=== PATIENT | female | born 1950 | race Caucasian/White ===

== ENCOUNTER 2019-01-26 07:08 | Day surgery (SDC) | payer MEDICARE, OTHER ==
[~2019-01-26] VITALS: Ht 165.1 cm; Wt 89.9 kg
[~2019-01-26 07:08] MED LIST: ASPI81CH PO; CLOP75 PO; Coumadin4 MG PO; ENOX100I SC; PRAV10 PO; PRAV20 PO; VARE1 PO
[2019-01-26] MEDS ORDERED: Vitamin D2000 UNIT PO (07:45)
[2019-01-26] MEDS ORDERED: XARELTO15 MG PO (07:45)
--- NOTE | 2019-01-26 08:54 | NUR ---
01/26/19 0853 Khadra Bustillos PT. DENIES PAIN. VERBALIZES CAN FEEL LEFT THUMB BUT FEELS NUMB. GOOD CAP REFILL. HAND ELEVATED UP ON PILLOW. 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
== END 2019-01-26 09:26 | disposition home or self-care (01) ==
LOC: ORSCSDS 07:08
PROVIDERS: Orthopaedic Surgery
PROC: 0LN80ZZ Release Left Hand Tendon, Open Approach (ICD-10-PCS; principal; 2019-01-26 08:30)
DX: M65.312 Trigger thumb, left thumb (principal); E78.00 Pure hypercholesterolemia, unspecified; Z87.891 Personal history of nicotine dependence; E66.9 Obesity, unspecified; Z68.33 Body mass index [BMI] 33.0-33.9, adult; Z79.899 Other long term (current) drug therapy; Z79.82 Long term (current) use of aspirin; Z79.01 Long term (current) use of anticoagulants
CPT/HCPCS: J0171; J0690; J2250; J2704; J3010; J7120

== ENCOUNTER 2020-01-16 16:56 | Inpatient (IN) | payer MEDICARE, OTHER ==
[~2020-01-16] VITALS: Ht 165.1 cm; Wt 86.2 kg
[~2020-01-16 16:56] MED LIST changes: -PRAV20 PO; +Pravastatin Sod80 MG PO; +XARELTO15 MG PO
[2020-01-16 18:25] LABS: BASOPHILS ABSOLUTE AUTO 0.01 K/mm3 (0.00-0.23); BASOPHILS PERCENT AUTO 0 % (0-2); EOSINOPHILS PERCENT AUTO 0 % (0-6); Hematocrit 42.5 % (33.0-51.0); Hemoglobin 13.7 g/dL (11.5-16.0); IMMATURE GRAN ABSOLUTE AUTO 0.01 K/mm3 (0.00-0.10); IMMATURE GRAN PERCENT AUTO 0 % (0-1); LYMPHOCYTES ABSOLUTE AUTO 0.66 K/mm3 (0.84-5.20); LYMPHOCYTES PERCENT AUTO 14 % (21-46); MONOCYTES ABSOLUTE AUTO 0.24 K/mm3 (0.16-1.47); MONOCYTES PERCENT AUTO 5 % (4-13); Mean Corpuscular HGB Conc 32.2 g/dL (31.5-36.5); Mean Corpuscular Volume 90 fL (80-100); Mean Platelet Volume 10.8 fL (9.1-12.4); NEUTROPHILS ABSOLUTE AUTO 3.91 K/mm3 (1.96-9.15); NEUTROPHILS PERCENT AUTO 81 % (41-73); Platelet Count 217 K/mm3 (150-400); RDW Coefficient Variation 12.8 % (11.7-14.2); RDW Standard Deviation 42.3 fL (35.1-46.3); Red Blood Cell Count 4.73 M/mm3 (3.80-5.20); White Blood Cell Count 4.83 K/mm3 (4.00-11.30)
[2020-01-16 18:35] LABS: Anion Gap 9 mmol/L (6-16); Blood Urea Nitrogen 13 mg/dL (8-24); CO2, Blood 20 mmol/L (21-32); Calcium, Blood 8.7 mg/dL (8.5-10.1); Chloride, Blood 109 mmol/L (98-108); Creatinine, Blood 0.72 mg/dL (0.40-1.00); Glomerular Filtration Rate >60 (60-); Glucose, Blood 117 mg/dL (70-99); Potassium, Blood 4.3 mmol/L (3.5-5.5); Sodium, Blood 138 mmol/L (136-145)
[2020-01-16] MEDS ORDERED: MONT10T PO (18:56)
[2020-01-16] MEDS ORDERED: Norco 5-325 Ta1 EACH PO (18:56)
[2020-01-16 19:04] LABS: PCO2 Arterial 27.6 mmHg (35-45); PO2 Arterial 61.1 mmHg (80-100); pH Blood Arterial 7.46 (7.35-7.45)
[2020-01-16] MEDS ORDERED: Vitamin D2000 UNIT PO (19:10)
[2020-01-16 19:38] LABS: Albumin/Globulin Ratio 0.8 (0.8-1.8); Bilirubin, Direct 0.2 mg/dL (0.0-0.3); Bilirubin, Indirect 0.6 mg/dL (0.1-0.7); Bilirubin, Total 0.8 mg/dL (0.1-1.0)
[2020-01-16 19:39] LABS: International Normalized Ratio 3.38; Prothrombin Time Results 33.8 Sec (9.7-11.5)
[2020-01-16 20:10] LABS: Influenza A Negative (NEGATIVE); Influenza B Negative (NEGATIVE)
[2020-01-17 00:53] LABS: Adenovirus Not Detected (NOT DETECT); Bordetella pertussis Not Detected (NOT DETECT); Chlamydophila pneumoniae Not Detected (NOT DETECT); Coronavirus 229E Not Detected (NOT DETECT); Coronavirus HKU1 Not Detected (NOT DETECT); Coronavirus NL63 Not Detected (NOT DETECT); Coronavirus OC43 Not Detected (NOT DETECT); Human Metapneumovirus Not Detected (NOT DETECT); Human Rhinovirus/Enterovirus Not Detected (NOT DETECT); Influenza A/2009-H1 Not Detected (NOT DETECT); Influenza A/H1 Not Detected (NOT DETECT); Influenza A/H3 Not Detected (NOT DETECT); Influenza B Not Detected (NOT DETECT); Mycoplasma pneumoniae Not Detected (NOT DETECT); Parainfluenza Virus 1 Not Detected (NOT DETECT); Parainfluenza Virus 2 Not Detected (NOT DETECT); Parainfluenza Virus 3 Not Detected (NOT DETECT); Parainfluenza Virus 4 Not Detected (NOT DETECT); Respiratory Syncytial Virus Not Detected (NOT DETECT); SARS-Cov-2 (COVID-19), BioFire Not Detected (NOT DETECT)
[2020-01-17 05:25] LABS: BASOPHILS ABSOLUTE AUTO 0.01 K/mm3 (0.00-0.23); BASOPHILS PERCENT AUTO 0 % (0-2); EOSINOPHILS PERCENT AUTO 0 % (0-6); Hematocrit 38.2 % (33.0-51.0); Hemoglobin 12.2 g/dL (11.5-16.0); IMMATURE GRAN ABSOLUTE AUTO 0.01 K/mm3 (0.00-0.10); IMMATURE GRAN PERCENT AUTO 0 % (0-1); LYMPHOCYTES ABSOLUTE AUTO 1.21 K/mm3 (0.84-5.20); LYMPHOCYTES PERCENT AUTO 29 % (21-46); MONOCYTES ABSOLUTE AUTO 0.23 K/mm3 (0.16-1.47); MONOCYTES PERCENT AUTO 5 % (4-13); Mean Corpuscular HGB 28.4 pg (26.0-34.0); Mean Corpuscular HGB Conc 31.9 g/dL (31.5-36.5); Mean Corpuscular Volume 89 fL (80-100); Mean Platelet Volume 9.9 fL (9.1-12.4); NEUTROPHILS ABSOLUTE AUTO 2.78 K/mm3 (1.96-9.15); NEUTROPHILS PERCENT AUTO 66 % (41-73); Platelet Count 161 K/mm3 (150-400); RDW Coefficient Variation 12.9 % (11.7-14.2); RDW Standard Deviation 42.2 fL (35.1-46.3); Red Blood Cell Count 4.29 M/mm3 (3.80-5.20); White Blood Cell Count 4.24 K/mm3 (4.00-11.30)
[2020-01-17 05:38] LABS: International Normalized Ratio 3.52; Prothrombin Time Results 35.1 Sec (9.7-11.5)
[2020-01-17 05:43] LABS: Anion Gap 7 mmol/L (6-16); Blood Urea Nitrogen 14 mg/dL (8-24); Bun/Creatinine Ratio 18.7 (12.0-20.0); CO2, Blood 21 mmol/L (21-32); Calcium, Blood 7.7 mg/dL (8.5-10.1); Chloride, Blood 111 mmol/L (98-108); Creatinine, Blood 0.75 mg/dL (0.40-1.00); Glomerular Filtration Rate >60 (60-); Glucose, Blood 107 mg/dL (70-99); Potassium, Blood 3.7 mmol/L (3.5-5.5); Sodium, Blood 139 mmol/L (136-145)
--- NOTE | 2020-01-17 06:28 | NUR ---
ADMIT NOTE/SHIFT SUMMARY PATIENT ADMITED EARLIER THIS SHIFT FROM THE ER. PATIENT ABLE TO TRANSFER SELF FROM THE GURNEY TO THE BED VIA SBA. PATIENT SETTLED IN AND ORIENTED TO THE ROOM, UNIT, AND CALL LIGHT. PATIENT PLEASENT AND COOPERATIVE THROUGHOUT THE NIGHT. PATIENT MEDICATED FOR PAIN PER EMAR. PATIENT REPORTS SHE WAS ABLE TO DOZE ON AND OFF THROUGHOUT THE NIGHT. PATIENT CURRENTLY ON 6L VIA HIGH FLOW N/C. PATIENT CURRENTLY RESTING IN BED, WATCHING TV. VITAL SIGNS CHARTED. WILL CONTINUE TO MONITOR PATIENT AND REPORT TO ONCOMING RN.
--- NOTE | 2020-01-17 18:20 | NUR ---
SHIFT SUMMARY PT IS ALERT AND ORIENTEDx4 VERY PLEASANT TO WORK WITH. INITIALLY PT WAS ON 6L OF O2 VIA NC THIS MORNING, NON-PRODUCTIVE DRY COUGH. WAS ABLE TO DECREASE O2 TO 4L THIS AFTERNOON AND PT HAS MAINTAINED SPO2 >90%. DR SUMMERS WAS CONSULTED TODAY AND ORDERS RECEIVED TO MAINTAIN SPO2 >88%. PT IS TACHYPNIC AND DOES HAVE EXERTIONDAL DYSPNEA WITH A DROP IN SATS TO MID 80'S WITH ACTIVITY. PT DOES RECOVER QUICKLY. TELEMETRY HAS SHOWN PT TO BE IN SINUS RHYTHM, OTHER VITALS HAVE BEEN STABLE. ENHANCED DROPLOT ISOLATION REMAINS IN PLACE, CALL LIGHT WITHIN REACH OF PT.
[2020-01-18 04:21] LABS: International Normalized Ratio 3.82; Prothrombin Time Results 37.9 Sec (9.7-11.5)
--- NOTE | 2020-01-18 06:21 | NUR ---
SHIFT SUMMARY PATIENT PLEASENT AND COOPERATIVE THROUGHOUT THE NIGHT. PATIENT REQURED 10-11L OF O2 TO MAINTAIN O2 READING'S GREATER THAN 88% THROUGHOUT THE NIGHT. PATIENT SBA TO THE BATHROOM. PATIENT REPORTS HER BREATHING CONTINUES TO FEEL BETTER THAN WHEN SHE GOT HERE. PATIENT APPEARS TO HAVE SELPT WELL THROUGHOUT THE SECOND HALF OF THE NIGHT. WHEN AWAKE PATIENT ENCOURAGED TO ATTEMPT TO PRONE SELF PERIODICALLY, HOWEVER, PATIENT REPORTS IT IS "UNCOMFORTABLE AND IT MAKES IT HARDER FOR ME TO BREATH." VITAL SIGNS CHARTED. WILL CONTINUE TO MONITOR PATIENT AND REPORT TO ONCOMING RN.
--- NOTE | 2020-01-18 17:53 | NUR ---
SHIFT SUMMARY; A/A/OX4 THROUGHOUT SHIFT. REMAINS ON 11L HIGH FLOW O2. SBA ASSIST IN ROOM. SHOWER AND LINEN CHANGE TODAY. NO ACUTE CHANGES OF MEDICAL CARE TODAY. WILL CONTINUE TO MONITOR UNTIL CHANGE OF SHIFT.
[2020-01-19 04:37] LABS: Hematocrit 38.6 % (33.0-51.0); Hemoglobin 12.3 g/dL (11.5-16.0); Mean Corpuscular HGB 28.3 pg (26.0-34.0); Mean Corpuscular HGB Conc 31.9 g/dL (31.5-36.5); Mean Corpuscular Volume 89 fL (80-100); Platelet Count 236 K/mm3 (150-400); RDW Coefficient Variation 12.8 % (11.7-14.2); Red Blood Cell Count 4.34 M/mm3 (3.80-5.20); White Blood Cell Count 8.63 K/mm3 (4.00-11.30)
[2020-01-19 04:53] LABS: International Normalized Ratio 3.47; Prothrombin Time Results 34.6 Sec (9.7-11.5)
[2020-01-19 04:56] LABS: Albumin, Blood 2.6 g/dL (3.4-5.0); Anion Gap 5 mmol/L (6-16); Blood Urea Nitrogen 30 mg/dL (8-24); Bun/Creatinine Ratio 39.6 (12.0-20.0); CO2, Blood 24 mmol/L (21-32); Calcium, Blood 8.4 mg/dL (8.5-10.1); Chloride, Blood 114 mmol/L (98-108); Creatinine, Blood 0.76 mg/dL (0.40-1.00); Glomerular Filtration Rate >60 (60-); Glucose, Blood 178 mg/dL (70-99); Phosphorus, Blood 3.5 mg/dL (2.5-4.9); Potassium, Blood 4.3 mmol/L (3.5-5.5); Sodium, Blood 143 mmol/L (136-145)
--- NOTE | 2020-01-19 05:29 | NUR ---
END OF SHIFT SUMMARY NO ACUTE CHANGES THIS SHIFT BESIDES BEING TITRATED FROM 11L HIFLOW TO 13L. SPO2 RANGING FROM 88% TO 94%. PT HAS BEEN MUCH LESS "LABILE AND IRRITABLE" WITH STAFF THIS SHIFT AND HAS BEEN NCOOPERATIVE AND PLEASANT WITH THIS RN. STILL AWAITING SEND OUT COVID RESULTS. STAFF WEARING APPROPRIATE PPE WHILE IN ROOM. LUNG SOUNDS TO AUCULTATION SOUND DIM W/OUT CRACKLES OR WHEEZES. WILL CONTINUE TO MONITOR UNTIL SHIFT CHANGE.
--- NOTE | 2020-01-19 17:56 | NUR ---
SHIFT SUMMARY; A/A/OX4 THROUGHOUT SHIFT TODAY. 11L HIGH FLOW 02. SBA ASSIST IN ROOM TO RESTROOM NEEDED. L/S DIMINISHED THROUGHOUT, DYSPNEA WITH EXERTION. SON AT BEDSIDE TODAY. CALM AND COOPERATIVE DURING SHIFT. NO ACUTE CHANGES, WILL CONTINUE TO MONITOR AND TREAT UNTIL CHANGE OF SHIFT.
--- NOTE | 2020-01-20 02:49 | NUR ---
TRANSFER OF CARE 0245 01/20/2020 CARE TRANSFERRED TO MARILYN RN/SAM RN. UP UNTIL THIS TIME, NO ACUTE CHANGES THIS SHIFT. VSS. PT ON 11 HIFLOW AT BEGINNING OF SHIFT, MOST RECENTLY, PT TITRATED TO 13L TO MEET SPO2 >88%. THIS HAPPENED LAST NOC SHIFT WELL WHEN PATIENT LAYING FLAT AND SLEEPING. PT REMIANS IN SR, BP STABLE. LUNGS PRESENT DIM WITH OCCASIONAL CRACKLES. PT VERY PLEASANT AND COOPERATIVE. HAS OCCASIONAL ANXIETY RELATED TO RESPIRATORY STATUS. REMDESIVIR INFUSED VIA IV. OTHERWISE, PT RESTING QUIETLY IN ROOM.
[2020-01-20 03:55] LABS: International Normalized Ratio 3.82; Prothrombin Time Results 37.9 Sec (9.7-11.5)
--- NOTE | 2020-01-20 05:30 | NUR ---
END OF SHIFT SUMMARY NO ACUTE CHANGES THIS SHUFT. P[T AXO. STARTED SHIFT ON 11L HIFLO, NOW AT 13L HI FLOW WHILE SLEEPING PRONE. LUNG SOUNDS CLEAR TO FINE CRACKLES IN BASES AT TIMES. PT STATES OCCASIONALLY PRODUCING SMALL THIN SECRETIONS WHEN COUGHING, WHITE/YELLOW COLORED. PT ANXIOUS AT TIMES DUE TO RESPIRATORY STATUS BUT PRESENTS CALM AND COOPERATIVE. REMDESEVIR INFUSED ORDERED. SPO2 RANGING FROM 88% TO 92%. PT REMAINS IN [id number] PRESSURE ROOM, INDICATOR PRESENTS THAT THE PRESSURE SETTINGS IMN THE ROOM ARE WORKING ADEQUATELY. OTHERWISE, PT HAS BEEN RESTING IN ROOM QUIETELY. WILL CONTINUE TO MONITOR UNTIL SHIFT CHANGE.
--- NOTE | 2020-01-20 07:10 | NUR ---
ASSUMED CARE AT 0700, REPORT FROM EMILE JESUS. A/A/OX4, 13L HIGH FLOW O2. INDEPENDANT IN ROOM. PLAN OF CARE REVIEWED FOR DAY, WILL CONTINUE TO MONITOR.
--- NOTE | 2020-01-20 17:37 | NUR ---
SHIFT SUMMARY; A/A/OX4 THROUGHOUT SHIFT TODAY. SBA IN ROOM TO RESTROOM NEEDED. 14L HIGH FLOW O2 THROUGHOUT DAY. DYSPNEA WITH EXCERTION. MAINTAINED SATS 88-93% VSS, PLEASANT AND COOPERATIVE WITH CARE. NO ACUTE MEDICAL CHANGES DURING SHIFT.
[2020-01-21 04:11] LABS: International Normalized Ratio 3.31; Prothrombin Time Results 33.1 Sec (9.7-11.5)
--- NOTE | 2020-01-21 05:08 | NUR ---
SUMMARY: A/OX4, ANXIOUS AT TIMES, SBA TO TOILET OR BSC AND PT SPECIFIES NEEDS. SHE REMAINS ON 14L HIGH FLOW HUMIDIFIED O2 W/SPO2 88-93% PER MD'S TARGET RANGE. SHE DOES STILL DESAT W/EXERTION OR ATTEMPTS TO TITRATE O2. PT BECOMES SOB W/ACTIVITY, REPOSITIONING IN BED AND IT'S EXACERBATED BY ANXIETY. BREATHING COACHING PERFORMED FOR GOOD EFFECT AT CALMING PT AND RESPIRATIONS. LS CLEAR T/O AND DIMINISHED W/OCCASIONAL MOIST HACKING COUGH, DARK RED/BLACK TINGED SPUTUM OBSERVED. LAST DOSE OF REMDESIVIR RECIEVED FOR COVID (+), PO DECADRON STILL BEING RECIEVED. PT IS NSR AT 60'S WHEN BUT DOES BECOME BRADYCARDIC AT TIMES WHEN ASLEEP W/HR 50'S. NO ACUTE CHANGES, VSS/AFEBRILE. WCTM AND REPORT TO DAY RN.
--- NOTE | 2020-01-21 07:25 | NUR ---
ASSUMED CARE: PT RESTING QUIETLY IN BED. NC IN PLACE, SATTING 91% ON 14L AT THIS TIME. NSR ON TELE. NO ACUTE NEEDS OR CONCERNS.
--- NOTE | 2020-01-21 18:07 | NUR ---
SHIFT SUMMARY: PT TITRATED TO 10L ON HIFLOW NC. NUMBERS IMPROVED AFTER PRONING AND SITTING UP IN CHAIR THIS AFTERNOON. FAMILY CALLED AND HAS BEEN GIVEN UPDATE WITH EDUCATION ON STATUS AND WHY OXYGEN NEED IS SO HIGH. WILL CONINUE TO MONITOR AND TITRATE 02 ABLE.
[2020-01-22 04:16] LABS: International Normalized Ratio 3.02; Prothrombin Time Results 30.4 Sec (9.7-11.5)
--- NOTE | 2020-01-22 06:30 | NUR ---
SHIFT SUMMARY PT SLEPT T/O SHIFT. PT REPORTS NO CHEST PRESSURE OR PAIN. PT ALERT AND ORIENTED. PT ABLE TO AMBULATE TO BATHROOM WITH ONE ASSIST. PT MAINTAINED OVER 90% ON 10 L OF OXYGEN VIA HIGH FLOW NASAL CANULA. HR STABLE, BP STABLE. WILL CONTINUE TO MONITOR UNTIL REPORT GIVEN TO DAYSHIFT RN.
--- NOTE | 2020-01-22 07:00 | NUR ---
ASSUMED CARE: PT NSR ON TELE, NIGHT RN REPORTS 10L NC. WALL STEAMER ASSISTING WITH SHOWER AT THIS TIME. NO FURTHER NEEDS OR CONCERNS AT PRESENT
--- NOTE | 2020-01-22 18:40 | NUR ---
SHIFT SUMMARY: PT HAS PRONED HERSELF MULTIPLE TIMES THIS SHIFT AND WAS ABLE TO BE TITRATED DOWN TO 7L VIA HIFLOW NC. SHE HAD A VISITOR AT BEDSIDE TODAY. STATES SHE IS FEELING BETTER AND STRONGER. UP IN CHAIR THIS SHIFT WELL. SEEMS MOTIVATED TO MOVE AND CHANGE POSITIONS IN ROOM. NO FURTHER NEEDS OR CONCERNS AT THIS TIME.
--- NOTE | 2020-01-23 04:30 | NUR ---
SUMMARY PT PLEASANT AND COOPERATIVE WITH CARE. AMBULATES TO BATHROOM WITH SUPERVISION. SLEPT MOST THE NIGHT WITH NO COMPLAINTS OF PAIN. MAINTAINING O2 SATS IN THE LOWER 90s ON 6L OF O2. VSS, CALL LIGHT IN REACH, BED IN LOW POSITION.
[2020-01-23 04:55] LABS: International Normalized Ratio 3.63; Prothrombin Time Results 36.1 Sec (9.7-11.5)
--- NOTE | 2020-01-23 18:13 | NUR ---
SHIFT SUMMARY; A/A/OX4 DURING SHIFT TODAY. 4L 02 VIA HIGH FLOW. AMBULATORY TO RESTROOM NEEDED WITH MINIMAL DYSPNEA. NO ACUTE CHANGES DURING SHIFT TODAY, WILL CONTINUE TO MONITOR UNTIL CHANGE OF SHIFT.
--- NOTE | 2020-01-23 21:04 | NUR ---
ASSUMED CARE, SHIFT ASSESSMENT BY PREVIOUS NOC SHIFT RN REVIEWED. WILL MONITOR FOR CHANGES.
[2020-01-24 05:23] LABS: Prothrombin Time Results 43.8 Sec (9.7-11.5)
[2020-01-24 05:24] LABS: International Normalized Ratio 4.45
--- NOTE | 2020-01-24 05:30 | NUR ---
NO CHANGWES SINCE INTIAL ASSESSMENT. CRITICAL INR PHARMACY NOTIFIED, NO CHANGE IN CONDITION.
--- NOTE | 2020-01-24 16:13 | NUR ---
SHIFT NOTE PT HAS BEEN A SBA T/O THE DAY, UP WITH STEADY GAIT TO BATHROOM, PT DOES DESATURATE TO 87% ON 2L BUT QUICKLY RETURNS TO BASELINE OF 93% ON 2L. A/O X3, ANSWERS QUESTIONS APPROPRIATELY IN FULL SENTENCES. OCCASIONAL PRODUCTIVE COUGH NOTED. LS ARE CLEAR T/O. PT STS THAT SHE IS FEELING MARKEDLY BETTER AND HOPES TO GO HOME TOMORROW. VSS T/O THE SHIFT. PT IS HAPPY AND TALKATIVE WHEN STAFF IN ROOM. PT WITH GOOD APPETITE. PT LYING IN BED WATCHING TV AT HTIS TIME
[2020-01-25 04:28] LABS: International Normalized Ratio 3.28; Prothrombin Time Results 32.8 Sec (9.7-11.5)
--- NOTE | 2020-01-25 05:01 | NUR ---
SHIFT SUMMARY NO ACUTE CHANGES TO REPORT THIS SHIFT. PT HAS RESTED MOST OF THE NIGHT. SHE HAS DENIED PAIN. SHE OVERALL REPORTS FEELING BETTER, HOWEVER STILL REPORTS SOB WITH EXERTION. REPORTS PRODUCTIVE COUGH WITH STREAKED SPUTUM. RESP APPEAR E/U ON 2L. SATS ARE WNL. PT AMBULATES TO THE BATHROOM WITH MINIMAL ASSISTANCE. VITALS ARE STABLE. APPETITE GOOD. BED IN LOWEST POSITION, CALL LIGHT WITHIN REACH.
--- NOTE | 2020-01-25 16:59 | NUR ---
SHIFT NOTE PT HAS BEEN RESTING WELL IN BED T/O THE DAY. PT STS THAT IS FEELING BETTER TODAY THAN YESTERDAY AND THAT SHE IS READY TO GO HOME. PT WAS TITRATED TO 1L NC THIS AM WHICH SHE HAS BEEN TOELRATING WELL T/O THE DAY. NO OTHER ACUTE CHANGES AT THE TIME OF THIS NOTE
--- NOTE | 2020-01-25 17:44 | NUR ---
HOME O2 EVAL PEFORMED BY THIS RN, PT WAS ABLE TO TOLERATE AMBULATION ON ROOM AIR T/O THE ROOM AND MAINTAIN SPO2 BETWEEN 89-91%. PT DENIES ANY SOB WITH AMBULATION STS THAT SHE FEELS "BETTER" THAN SHE HAS WITH PREVIOUS AMBULATIONS. PT IS NOW RESTING IN BED ON RA WITH SPO2 OF 94%. DR MALIK IS NOTIFIED OF RESULTS AND STS THAT PT WILL BE D/C TONIGHT
[2020-01-25] MEDS ORDERED: DEXA6 PO (18:15)
--- NOTE | 2020-01-25 19:30 | NUR ---
[facility] PROVIDED PT WITH DISCHARGE INSTRUCTIONS. PT VERBALIZED UNDERSTANDING PERTAINING TO INSTRUCTIONS. IV REMOVED. PT TAKEN BY WHEELCHAIR TO [employer] CAR BY SUPERVISOR SLITTING AND SHIPPING WITH SURGICAL MASK IN PLACE.
== END 2020-01-25 19:54 | disposition home or self-care (01) | DRG 177 ==
LOC: ER 16:56 → PCU 22:28
PROVIDERS: Emergency Medicine; Internal Medicine; Nurse Practitioner Acute Care; ADMIT Internal Medicine
PROC: XW033E5 Introduction of Remdesivir Anti-infective into Peripheral Vein, Percutaneous Approach, New Technology Group 5 (ICD-10-PCS; principal; 2020-01-16)
PROC: XW033E5 Introduction of Remdesivir Anti-infective into Peripheral Vein, Percutaneous Approach, New Technology Group 5 (ICD-10-PCS; 2020-01-17)
PROC: XW033E5 Introduction of Remdesivir Anti-infective into Peripheral Vein, Percutaneous Approach, New Technology Group 5 (ICD-10-PCS; 2020-01-18)
PROC: XW033E5 Introduction of Remdesivir Anti-infective into Peripheral Vein, Percutaneous Approach, New Technology Group 5 (ICD-10-PCS; 2020-01-18)
PROC: XW033E5 Introduction of Remdesivir Anti-infective into Peripheral Vein, Percutaneous Approach, New Technology Group 5 (ICD-10-PCS; 2020-01-18)
DX: U07.1 COVID-19 (principal); J12.89 Other viral pneumonia; J96.01 Acute respiratory failure with hypoxia; Z95.2 Presence of prosthetic heart valve; E78.5 Hyperlipidemia, unspecified; J44.9 Chronic obstructive pulmonary disease, unspecified; Z87.891 Personal history of nicotine dependence; E66.9 Obesity, unspecified; Z68.33 Body mass index [BMI] 33.0-33.9, adult
CPT/HCPCS: 0202U; 36415; 36600; 71045; 80048; 80069; 80076; 82728; 82803; 82947; 83605; 83615; 84145; 85025; 85027; 85379; 85610; 86141; 87040; 87804; 93005; 93010; 94640; 94762; 96365; 96372; 99285-25; A9270; A9270-GY; J1644; J7030; J7050; U0003

== ENCOUNTER 2021-02-26 00:01 | Emergency (ER) | payer MEDICARE, OTHER ==
[~2021-02-26 00:01] MED LIST changes: +DEXA6 PO; +MONT10T PO; +Norco 5-325 Ta1 EACH PO; +Vitamin D2000 UNIT PO
[2021-02-26 09:23] LABS: International Normalized Ratio 2.52; Prothrombin Time Results 24.9 Sec (9.7-11.5)
[2021-02-26 09:44] LABS: BASOPHILS ABSOLUTE AUTO 0.03 K/mm3 (0.00-0.23); BASOPHILS PERCENT AUTO 0 % (0-2); EOSINOPHILS ABSOLUTE AUTO 0.06 K/mm3 (0.00-0.68); EOSINOPHILS PERCENT AUTO 1 % (0-6); Hemoglobin 13.8 g/dL (11.5-16.0); IMMATURE GRAN ABSOLUTE AUTO 0.03 K/mm3 (0.00-0.10); IMMATURE GRAN PERCENT AUTO 0 % (0-1); LYMPHOCYTES ABSOLUTE AUTO 1.55 K/mm3 (0.84-5.20); LYMPHOCYTES PERCENT AUTO 17 % (21-46); MONOCYTES ABSOLUTE AUTO 0.65 K/mm3 (0.16-1.47); MONOCYTES PERCENT AUTO 7 % (4-13); Mean Corpuscular HGB 29.7 pg (26.0-34.0); Mean Corpuscular HGB Conc 32.9 g/dL (31.5-36.5); Mean Corpuscular Volume 90 fL (80-100); Mean Platelet Volume 9.9 fL (9.1-12.4); NEUTROPHILS ABSOLUTE AUTO 6.91 K/mm3 (1.96-9.15); NEUTROPHILS PERCENT AUTO 75 % (41-73); Platelet Count 206 K/mm3 (150-400); RDW Coefficient Variation 13.3 % (11.7-14.2); RDW Standard Deviation 43.9 fL (35.1-46.3); Red Blood Cell Count 4.65 M/mm3 (3.80-5.20); White Blood Cell Count 9.23 K/mm3 (4.00-11.30)
[2021-02-26 10:14] LABS: Alanine Aminotransfer (ALT/SGP 72 U/L (12-78); Albumin/Globulin Ratio 0.9 (0.8-1.8); Alk Phos 109 U/L (50-136); Anion Gap 7 mmol/L (6-16); Aspartate Aminotrans (AST/SGOT 73 U/L (12-37); Bilirubin, Total 0.6 mg/dL (0.1-1.0); Blood Urea Nitrogen 13 mg/dL (8-24); Bun/Creatinine Ratio 18.3 (12.0-20.0); CO2, Blood 24 mmol/L (21-32); Calcium, Blood 8.8 mg/dL (8.5-10.1); Chloride, Blood 112 mmol/L (98-108); Creatinine, Blood 0.71 mg/dL (0.40-1.00); Globulin, Blood 3.3 g/dL (2.2-4.0); Glomerular Filtration Rate >60 (60-); Glucose, Blood 136 mg/dL (70-99); Potassium, Blood 4.1 mmol/L (3.5-5.5); Sodium, Blood 143 mmol/L (136-145); Total Protein, Blood 6.3 g/dL (6.4-8.2)
== END 2021-02-26 02:58 | disposition home or self-care (01) ==
LOC: ER 00:01
PROVIDERS: Emergency Medicine
DX: R55 Syncope and collapse (principal); F41.9 Anxiety disorder, unspecified
CPT/HCPCS: 80053; 85025; 85610; 93005; 93010; 99284-25

== ENCOUNTER 2021-06-05 07:49 | Day surgery (SDC) | payer MEDICARE, OTHER | END 2021-06-05 10:28 | disposition home or self-care (01) | LOC: ORSCSDS 07:49 | PROVIDERS: Orthopaedic Surgery | PROC: 0LN70ZZ Release Right Hand Tendon, Open Approach (ICD-10-PCS; principal; 2021-06-05 09:00) | DX: M65.311 Trigger thumb, right thumb (principal); E78.5 Hyperlipidemia, unspecified; E78.00 Pure hypercholesterolemia, unspecified; I35.0 Nonrheumatic aortic (valve) stenosis; I25.10 Atherosclerotic heart disease of native coronary artery without angina pectoris; J44.9 Chronic obstructive pulmonary disease, unspecified; Z87.891 Personal history of nicotine dependence; Z79.01 Long term (current) use of anticoagulants; Z79.899 Other long term (current) drug therapy | CPT/HCPCS: J0690; J2250; J2704 ==

== ENCOUNTER 2022-01-24 20:25 | Emergency (ER) | payer MEDICARE, OTHER ==
[~2022-01-24] VITALS: Ht 165.1 cm; Wt 86.2 kg
[2022-01-24 22:39] LABS: Source, Urine Straight Cath
[2022-01-24 22:41] LABS: BASOPHILS ABSOLUTE AUTO 0.03 K/mm3 (0.00-0.23); BASOPHILS PERCENT AUTO 0 % (0-2); EOSINOPHILS ABSOLUTE AUTO 0.06 K/mm3 (0.00-0.68); EOSINOPHILS PERCENT AUTO 1 % (0-6); Hematocrit 41.8 % (33.0-51.0); Hemoglobin 13.7 g/dL (11.5-16.0); IMMATURE GRAN ABSOLUTE AUTO 0.02 K/mm3 (0.00-0.10); IMMATURE GRAN PERCENT AUTO 0 % (0-1); LYMPHOCYTES ABSOLUTE AUTO 1.77 K/mm3 (0.84-5.20); LYMPHOCYTES PERCENT AUTO 23 % (21-46); MONOCYTES ABSOLUTE AUTO 0.72 K/mm3 (0.16-1.47); MONOCYTES PERCENT AUTO 9 % (4-13); Mean Corpuscular HGB 29.3 pg (26.0-34.0); Mean Corpuscular HGB Conc 32.8 g/dL (31.5-36.5); Mean Corpuscular Volume 90 fL (80-100); NEUTROPHILS ABSOLUTE AUTO 5.18 K/mm3 (1.96-9.15); NEUTROPHILS PERCENT AUTO 66 % (41-73); Platelet Count 191 K/mm3 (150-400); RDW Coefficient Variation 12.9 % (11.7-14.2); Red Blood Cell Count 4.67 M/mm3 (3.80-5.20); White Blood Cell Count 7.78 K/mm3 (4.00-11.30)
[2022-01-24 23:10] LABS: Albumin, Blood 3.1 g/dL (3.4-5.0); Bilirubin, Total 0.8 mg/dL (0.1-1.0); Bun/Creatinine Ratio 14.7 (12.0-20.0); Calcium, Blood 8.6 mg/dL (8.5-10.1); Creatinine, Blood 0.61 mg/dL (0.40-1.00); Globulin, Blood 3.1 g/dL (2.2-4.0); Potassium, Blood 4.7 mmol/L (3.5-5.5); Total Protein, Blood 6.2 g/dL (6.4-8.2)
[2022-01-24 23:19] LABS: Appearance, Urine Hazy (Clear); Bilirubin, Urine Neg (Neg); Blood, Urine Neg (Neg); Color, Urine Yellow (P-Yellow); Glucose Qualitative, Urine Neg (Neg); Ketones, Urine Neg (Neg); Leukocyte Esterase, Urine Neg (Neg); Nitrite, Urine Neg (Neg); Protein, Urine Neg (Neg); Urobilinogen, Urine NORM (Normal)
[2022-01-24 23:41] LABS: Bacteria Mod /hpf; Squamous Epithelial Cells Few /hpf (Few)
[2022-01-24 23:42] LABS: Amorphous Light (0-Heavy)
[2022-01-24] MEDS ORDERED: CEPH500 PO (23:59)
== END 2022-01-25 00:38 | disposition home or self-care (01) ==
LOC: ER 20:25
PROVIDERS: Emergency Medicine
DX: N39.0 Urinary tract infection, site not specified (principal); Z87.891 Personal history of nicotine dependence; Z79.899 Other long term (current) drug therapy; Z79.01 Long term (current) use of anticoagulants; Z79.891 Long term (current) use of opiate analgesic
CPT/HCPCS: 74177; 80053; 81001; 85025; 87086; 96374-59; 96375; 99284-25; A9270; J0696; J1170; J2405; J7030; P9612; Q9967

== ENCOUNTER 2022-02-15 14:31 | Emergency (ER) | payer MEDICARE, OTHER ==
[~2022-02-15] VITALS: Ht 165.1 cm; Wt 89.8 kg
[~2022-02-15 14:31] MED LIST changes: +CEPH500 PO
[2022-02-15 15:18] LABS: BASOPHILS ABSOLUTE AUTO 0.03 K/mm3 (0.00-0.23); BASOPHILS PERCENT AUTO 1 % (0-2); EOSINOPHILS ABSOLUTE AUTO 0.05 K/mm3 (0.00-0.68); EOSINOPHILS PERCENT AUTO 1 % (0-6); Hematocrit 41.5 % (33.0-51.0); Hemoglobin 13.7 g/dL (11.5-16.0); IMMATURE GRAN ABSOLUTE AUTO 0.01 K/mm3 (0.00-0.10); IMMATURE GRAN PERCENT AUTO 0 % (0-1); LYMPHOCYTES ABSOLUTE AUTO 2.02 K/mm3 (0.84-5.20); LYMPHOCYTES PERCENT AUTO 32 % (21-46); MONOCYTES ABSOLUTE AUTO 0.45 K/mm3 (0.16-1.47); MONOCYTES PERCENT AUTO 7 % (4-13); Mean Corpuscular HGB 29.5 pg (26.0-34.0); Mean Corpuscular Volume 89 fL (80-100); Mean Platelet Volume 10.1 fL (9.1-12.4); NEUTROPHILS ABSOLUTE AUTO 3.79 K/mm3 (1.96-9.15); NEUTROPHILS PERCENT AUTO 60 % (41-73); Platelet Count 192 K/mm3 (150-400); RDW Coefficient Variation 13.1 % (11.7-14.2); RDW Standard Deviation 42.7 fL (35.1-46.3); Red Blood Cell Count 4.65 M/mm3 (3.80-5.20); White Blood Cell Count 6.35 K/mm3 (4.00-11.30)
[2022-02-15 15:42] LABS: Albumin, Blood 3.2 g/dL (3.4-5.0); Albumin/Globulin Ratio 1.1 (0.8-1.8); Bilirubin, Total 0.8 mg/dL (0.1-1.0); Bun/Creatinine Ratio 11.5 (12.0-20.0); Calcium, Blood 8.5 mg/dL (8.5-10.1); Creatinine, Blood 0.69 mg/dL (0.40-1.00); Potassium, Blood 3.8 mmol/L (3.5-5.5); Total Protein, Blood 6.2 g/dL (6.4-8.2)
== END 2022-02-15 18:05 | disposition home or self-care (01) ==
LOC: ER 14:31
PROVIDERS: Emergency Medicine
DX: R07.9 Chest pain, unspecified (principal); E78.5 Hyperlipidemia, unspecified; Z79.01 Long term (current) use of anticoagulants; Z79.899 Other long term (current) drug therapy; Z87.891 Personal history of nicotine dependence
CPT/HCPCS: 36415; 71045; 80053; 84484; 85025; 93005; 93010

== ENCOUNTER 2023-10-05 09:43 | Day surgery (SDC) | payer MEDICARE, OTHER ==
[~2023-10-05] VITALS: Ht 165.1 cm; Wt 72.2 kg
[~2023-10-05 09:43] MED LIST changes: +Balanced Salt Epinephrine Irrigation Solution 500 mL IR SCH; +Lidocaine HCl/Pf 1% 5 ML VIAL XX SCH; +Moxifloxacin HCL 0.5 MG/0.1 ML 0.4MLSYR LEFTEYE SCH; +NS 500 ML IV ONE; +PHENYLEPHRINE\\TROPICAMIDE\\TETRACAINE OPHTHALMIC DILATING SOLN LEFTEYE PRN; +Povidone-Iodine 450 DROP/30 ML Solution LEFTEYE SCH
[2023-10-05] MEDS ORDERED: JANTOVEN5 M2 PO (10:44)
[2023-10-05] MEDS ORDERED: JANTOVEN4 M2 PO (10:44)
[2023-10-05] MEDS ORDERED: HYDROCODONE-AC1 EA19 PO (10:45)
[2023-10-05] MEDS ORDERED: SYNTHROID25 M12 PO (10:46)
[2023-10-05] MEDS ORDERED: LEVSOD25 PO (10:46)
[2023-10-05] MEDS ORDERED: LEVSOD25 (10:47)
[2023-10-05] MEDS ORDERED: MONT10T PO (10:48)
[2023-10-05] MEDS ORDERED: VITAMIN B12 (10:48)
[2023-10-05] MEDS ORDERED: CALCIUM (10:49)
[2023-10-05] MEDS ORDERED: GABA300 PO (10:50)
[2023-10-05] MEDS ORDERED: MERIBIN5 MG (10:50)
[2023-10-05] MEDS ORDERED: PRAV20 PO (10:50)
[2023-10-05] MEDS ORDERED: NS 500 ML IV ONE (10:58)
[2023-10-05] MEDS ORDERED: FentaNYL Citrate 50 MCG/ML 2 ML Injection ONE (11:11)
[2023-10-05] MEDS ORDERED: Midazolam HCl 1MG / ML 2ML Vial ONE (11:11)
[2023-10-05 12:00] VITALS: BP 141/65
== END 2023-10-05 12:14 | disposition home or self-care (01) ==
LOC: ORSCSDS 09:43
PROVIDERS: Student in an Organized Health Care Education/Training Program
PROC: 08RK3JZ Replacement of Left Lens with Synthetic Substitute, Percutaneous Approach (ICD-10-PCS; principal; 2023-10-05 11:00)
DX: H25.813 Combined forms of age-related cataract, bilateral (principal); I25.2 Old myocardial infarction; J44.9 Chronic obstructive pulmonary disease, unspecified; I25.10 Atherosclerotic heart disease of native coronary artery without angina pectoris; E03.9 Hypothyroidism, unspecified; Z87.891 Personal history of nicotine dependence; E78.00 Pure hypercholesterolemia, unspecified; Z79.01 Long term (current) use of anticoagulants; Z79.899 Other long term (current) drug therapy
CPT/HCPCS: J2250; J3010; J7040; V2632

== ENCOUNTER 2023-10-19 09:38 | Day surgery (SDC) | payer MEDICARE, OTHER ==
[~2023-10-19] VITALS: Ht 165.1 cm; Wt 71.5 kg
[~2023-10-19 09:38] MED LIST changes: +CALCIUM; +GABA300 PO; +HYDROCODONE-AC1 EA19 PO; +JANTOVEN4 M2 PO; +JANTOVEN5 M2 PO; +LEVSOD25; +LEVSOD25 PO; +MERIBIN5 MG; -Moxifloxacin HCL 0.5 MG/0.1 ML 0.4MLSYR LEFTEYE SCH; +Moxifloxacin HCL 0.5 MG/0.1 ML 0.4MLSYR RIGHTEYE SCH; -PHENYLEPHRINE\\TROPICAMIDE\\TETRACAINE OPHTHALMIC DILATING SOLN LEFTEYE PRN; +PHENYLEPHRINE\\TROPICAMIDE\\TETRACAINE OPHTHALMIC DILATING SOLN RIGHTEYE PRN; +PRAV20 PO; -Povidone-Iodine 450 DROP/30 ML Solution LEFTEYE SCH; +Povidone-Iodine 450 DROP/30 ML Solution RIGHTEYE SCH; +SYNTHROID25 M12 PO; +VITAMIN B12
[2023-10-19] MEDS ORDERED: Tropicamide 1% Opth Soln 15 ML BTL ONE (09:43)
[2023-10-19] MEDS ORDERED: NS 500 ML IV ONE (09:55)
[2023-10-19] MEDS ORDERED: Midazolam HCl 1MG / ML 2ML Vial ONE (10:56)
[2023-10-19] MEDS ORDERED: FentaNYL Citrate 50 MCG/ML 2 ML Injection ONE (10:56)
[2023-10-19] MEDS ORDERED: Tetracaine HCl 0.5% Opth Soln 15 ml RIGHTEYE ONE (11:10)
[2023-10-19 11:20] VITALS: BP 155/66
== END 2023-10-19 11:31 | disposition home or self-care (01) ==
LOC: ORSCSDS 09:38
PROVIDERS: Student in an Organized Health Care Education/Training Program
PROC: 08RJ3JZ Replacement of Right Lens with Synthetic Substitute, Percutaneous Approach (ICD-10-PCS; principal; 2023-10-19 11:00)
DX: H25.811 Combined forms of age-related cataract, right eye (principal); Z96.1 Presence of intraocular lens; I25.2 Old myocardial infarction; I25.10 Atherosclerotic heart disease of native coronary artery without angina pectoris; J44.9 Chronic obstructive pulmonary disease, unspecified; E78.00 Pure hypercholesterolemia, unspecified; Z87.891 Personal history of nicotine dependence; Z79.01 Long term (current) use of anticoagulants; Z79.899 Other long term (current) drug therapy
CPT/HCPCS: J2250; J3010; J7040; V2632

== ENCOUNTER 2025-01-03 13:37 | Emergency (ER) | payer MEDICARE, OTHER ==
[~2025-01-03] VITALS: Ht 195.6 cm; Wt 68.0 kg
[~2025-01-03 13:37] MED LIST changes: -Balanced Salt Epinephrine Irrigation Solution 500 mL IR SCH; -Lidocaine HCl/Pf 1% 5 ML VIAL XX SCH; -Moxifloxacin HCL 0.5 MG/0.1 ML 0.4MLSYR RIGHTEYE SCH; -NS 500 ML IV ONE; -PHENYLEPHRINE\\TROPICAMIDE\\TETRACAINE OPHTHALMIC DILATING SOLN RIGHTEYE PRN; -Povidone-Iodine 450 DROP/30 ML Solution RIGHTEYE SCH
[2025-01-03 14:17] LABS: BASOPHILS ABSOLUTE AUTO 0.05 K/mm3 (0.00-0.23); BASOPHILS PERCENT AUTO 1 % (0-2); EOSINOPHILS ABSOLUTE AUTO 0.09 K/mm3 (0.00-0.68); EOSINOPHILS PERCENT AUTO 1 % (0-6); Hematocrit 43.7 % (33.0-51.0); Hemoglobin 14.6 g/dL (11.5-16.0); IMMATURE GRAN ABSOLUTE AUTO 0.02 K/mm3 (0.00-0.10); IMMATURE GRAN PERCENT AUTO 0 % (0-1); LYMPHOCYTES ABSOLUTE AUTO 2.21 K/mm3 (0.84-5.20); LYMPHOCYTES PERCENT AUTO 35 % (21-46); MONOCYTES ABSOLUTE AUTO 0.52 K/mm3 (0.16-1.47); MONOCYTES PERCENT AUTO 8 % (4-13); Mean Corpuscular HGB Conc 33.4 g/dL (31.5-36.5); Mean Corpuscular Volume 89 fL (80-100); NEUTROPHILS ABSOLUTE AUTO 3.37 K/mm3 (1.96-9.15); NEUTROPHILS PERCENT AUTO 54 % (41-73); NRBC ABSOLUTE 0.00 K/mm3 (0.00-0.02); NRBC Auto 0.0 /100 WBC (0.0-0.2); Platelet Count 211 K/mm3 (150-400); RDW Coefficient Variation 13.9 % (11.7-14.2); RDW Standard Deviation 46.0 fL (35.1-46.3)
[2025-01-03 14:36] LABS: Alanine Aminotransfer (ALT/SGP 14.0 U/L (12-78); Albumin, Blood 3.1 g/dL (3.4-5.0); Albumin/Globulin Ratio 0.9 (0.8-1.8); Anion Gap 4.0 mmol/L (3-11); Aspartate Aminotrans (AST/SGOT 23.0 U/L (12-37); Bilirubin, Total 0.6 mg/dL (0.1-1.0); Blood Urea Nitrogen 11.0 mg/dL (8-24); CO2, Blood 28.0 mmol/L (21-32); Calcium, Blood 9.4 mg/dL (8.5-10.1); Chloride, Blood 110.0 mmol/L (98-108); Creatinine, Blood 0.86 mg/dL (0.40-1.00); Globulin, Blood 3.5 g/dL (2.2-4.0); Glucose, Blood 139.0 mg/dL (70-99); Potassium, Blood 4.3 mmol/L (3.5-5.5); Sodium, Blood 138.0 mmol/L (136-145); Total Protein, Blood 6.6 g/dL (6.4-8.2)
[2025-01-03 16:45] VITALS: BP 181/66
== END 2025-01-03 17:15 | disposition home or self-care (01) ==
LOC: ER 13:37
PROVIDERS: Emergency Medicine
DX: I47.10 Supraventricular tachycardia, unspecified (principal); Z79.01 Long term (current) use of anticoagulants; Z79.899 Other long term (current) drug therapy
CPT/HCPCS: 80053; 84484; 85025; 93005; 93010; 99285-25